=== PATIENT | female | born 1960 | race Caucasian/White ===

== ENCOUNTER 2022-01-03 07:32 | Day surgery (SDC) | payer BC, SELFPAY ==
[~2022-01-03] VITALS: Ht 152.4 cm; Wt 90.7 kg
[2022-01-03] MEDS ORDERED: NS IRRIG SOLN 5000 ML IR ONE (10:54)
[2022-01-03] MEDS ORDERED: NS IRRIG SOLN 1000 ML IR ONE (10:54)
[2022-01-03] MEDS ORDERED: KETOROLAC TROMETHAMINE 30 MG VIAL ONE (10:54)
[2022-01-03] MEDS ORDERED: METOCLOPRAMIDE HCL 10 MG/2 ML VIAL ONE (10:54)
[2022-01-03] MEDS ORDERED: DEXAMETHASONE SOD PHOSPHATE 4 MG/ML VIAL ONE (10:54)
[2022-01-03] MEDS ORDERED: PROPOFOL 200MG/ 20ML VIAL (DIPRIVAN) IV ONE (10:54)
[2022-01-03] MEDS ORDERED: SEVOFLURANE 15 MIN GAS INH ONE (10:54)
[2022-01-03] MEDS ORDERED: ONDANSETRON HCL 4 MG/2 ML VIAL ONE (10:54)
[2022-01-03] MEDS ORDERED: CEFAZOLIN 2 GM IVPB PREMIX 50 ML IV ONE (10:54)
[2022-01-03] MEDS ORDERED: fentaNYL CITRATE 250 MCG/5 ML AMP ONE (10:54)
[2022-01-03] MEDS ORDERED: MIDAZOLAM HCL 5 MG/ML VIAL (VERSED) IV ONE (10:54)
[2022-01-03] MEDS ORDERED: OXYCODONE/ACETAMINOPHEN 5-325 TABLET PO PRN ×2 (11:45)
[2022-01-03] MEDS ORDERED: ONDANSETRON HCL 4 MG/2 ML VIAL IVP PRN (11:45)
[2022-01-03] MEDS ORDERED: IBUPROFEN 800 MG TABLET PO PRN (11:45)
[2022-01-03] MEDS ORDERED: MEPERIDINE HCL/PF 25 MG/ML DISP.SYRIN IVP PRN (11:45)
[2022-01-03] MEDS ORDERED: NALOXONE HCL 0.4 MG/ML AMP (NARCAN) IVP PRN (11:45)
[2022-01-03] MEDS ORDERED: KETOROLAC TROMETHAMINE 30 MG VIAL IVP PRN (11:45)
[2022-01-03] MEDS ORDERED: METOCLOPRAMIDE HCL 10 MG/2 ML VIAL IVP PRN (11:45)
[2022-01-03] MEDS ORDERED: ONDANSETRON HCL 4 MG/2 ML VIAL IM PRN (11:45)
[2022-01-03] MEDS ORDERED: LR 1,000 ML IV SCH (11:45)
[2022-01-03] MEDS ORDERED: HYDROmorphone 1 MG/ML INJ. CARTRIDGE IVP PRN (11:45)
[2022-01-03 15:49] VITALS: BP_SYST 127
== END 2022-01-03 15:35 | disposition home or self-care (01) ==
LOC: SDS 07:32 → SMU 07:33 → SDS 15:35
PROVIDERS: ATTEND Obstetrics & Gynecology
DX: N95.0 Postmenopausal bleeding (principal); N84.0 Polyp of corpus uteri; I10 Essential (primary) hypertension; Z88.0 Allergy status to penicillin; Z79.899 Other long term (current) drug therapy; Z20.822 Contact with and (suspected) exposure to COVID-19
CPT/HCPCS: 36415; 58558; 87426; 88305; C1819; J0690; J1100; J1885; J2250; J2405; J2704; J2765; J3010; U0003